=== PATIENT | male | born 1965 | race Caucasian/White ===

== ENCOUNTER → 2019-06-01 | Outpatient (CLI) | payer BC ==
[~2019-06-01] MED LIST: AMANTADINE100 M1 PO; BENZTROPINE MESY2 MG PO; NEUPRO1 EAC3 TD; PHENERGAN12.5 M2 RECTAL; ZOFRAN ODT4 MG PO
== END ==
LOC: M.ULTRA 10:30
DX: S83.232A Complex tear of medial meniscus, current injury, left knee, initial encounter (principal); M79.662 Pain in left lower leg; M22.42 Chondromalacia patellae, left knee; X58.XXXA Exposure to other specified factors, initial encounter; Y93.89 Activity, other specified; Y92.89 Other specified places as the place of occurrence of the external cause; Y99.8 Other external cause status

== ENCOUNTER 2021-10-27 06:53 | Emergency (ER) | payer BC ==
[~2021-10-27] VITALS: Ht 175.3 cm; Wt 83.9 kg
[2021-10-27] MEDS ORDERED: LODOSYN 25 MG T25 M1 PO (07:47)
[2021-10-27 08:47] LABS: HEMATOCRIT 43.7 % (42.0-52.0); MCH 33.6 pg (26.0-34.0); MCHC 34.3 g/dL (28.0-37.0); MPV 7.8 fl. (7.2-11.1); RBC 4.46 mil/uL (4.50-6.00); RDW-CV 12.5 % (10.5-14.5); WBC 6.1 thou/uL (4.0-11.0)
[2021-10-27 08:56] LABS: CALCIUM 8.6 mg/dL (8.5-10.1); POTASSIUM 4.4 mmol/L (3.5-5.1)
[2021-10-27] MEDS ORDERED: IBUPROFEN 800800 M1 PO (09:12)
[2021-10-27] MEDS ORDERED: PREDNISONE50 MG PO (09:12)
[2021-10-27] MEDS ORDERED: HYDROCODON-ACE1 EAC7 PO (09:12)
[2021-10-27 09:19] VITALS: BP 127/75
== END 2021-10-27 09:20 | disposition home or self-care (01) ==
LOC: M.ERS 06:53
PROVIDERS: Emergency Medicine Emergency Medical Services
DX: G58.9 Mononeuropathy, unspecified (principal); G20 Parkinson's disease; Z79.899 Other long term (current) drug therapy